=== PATIENT | female | born 1945 | race Caucasian/White ===

== ENCOUNTER 2018-08-13 05:55 | Day surgery (SDC) | payer OTHER ==
[~2018-08-13 05:55] MED LIST: CARDIZEM CD240 MG PO; CLARITIN5 MG PO; CLONAZEPAM0.5 MG PO; IRBESARTAN150 MG PO; NASONEX17 GM NASAL; OMEPRAZOLE MAGN20 MG PO; POLY119PG PO; SINGULAIR10 MG PO; [UNRECOGNIZED DRUG - OTHER]
[2018-08-13] MEDS ORDERED: ULTRACET PO (09:04)
[2018-08-13] MEDS ORDERED: NEURONTIN300 MG PO (09:05)
[2018-08-13] MEDS ORDERED: RECTICARE30 GM TOP (09:06)
== END 2018-08-13 12:40 | disposition home or self-care (01) ==
LOC: CIR.AMB 05:55
DX: K64.8 Other hemorrhoids (principal); K64.4 Residual hemorrhoidal skin tags